=== PATIENT | male | born 1970 | race Hispanic/Latino ===

== ENCOUNTER 2019-01-27 18:38 | Emergency (ER) | payer MEDICAID ==
[2019-01-27 18:44] VITALS: O2SAT 96
[2019-01-27] MEDS ORDERED: Naproxen 550 mg Tab PO STA (19:11)
[2019-01-27] MEDS ORDERED: Naproxen 550 mg Tab PO ONE (20:24)
--- NOTE | 2019-01-27 20:40 | C.PDOC ---
History Of Present Illness 48-year-old male presents to the ED for evaluation of right-sided rib pain which began today. Patient states he accidentally tripped, fell and hurt his right ribcage against the curb of a sidewalk. Patient is complaining of pain to the area with movement of his right arm and with inspiration. Patient denies head injury, loss of consciousness, shortness of breath. Time Seen by Provider: 01/27/19 18:46 Chief Complaint (Nursing): Rib Injury History Per: Patient History/Exam Limitations: no limitations Onset/Duration Of Symptoms: Hrs Current Symptoms Are (Timing): Still Present Additional History Per: Patient Past Medical History Reviewed: Historical Data, Nursing Documentation, Vital Signs Vital Signs: Last Vital Signs Temp 98.3 F 01/27/19 18:40 Pulse 87 01/27/19 18:40 Resp 20 01/27/19 18:40 BP 151/74 H 01/27/19 18:40 Pulse Ox 96 01/27/19 18:40 Primary Care Provider: Non [facility] Provider, - Medical History PMH: HTN, Hypercholesterolemia Surgical History: No Surg Hx Family History: States: Unknown Family Hx - Social History Hx Alcohol Use: Yes Hx Substance Use: No - Immunization History Hx Tetanus Toxoid Vaccination: No Hx Influenza Vaccination: No Hx Pneumococcal Vaccination: No Review Of Systems Respiratory: Negative for: Shortness of Breath Musculoskeletal: Positive for: Other (right-sided rib pain ) Neurological: Negative for: Other (head injury, LOC ) Physical Exam - Physical Exam Appears: Non-toxic, No Acute Distress Skin: Normal Color, Warm, Dry Head: Atraumatic, Normacephalic Eye(s): bilateral: Normal Inspection Oral Mucosa: Moist Neck: Supple Chest: Symmetrical, No Deformity, Tenderness (to right intercostal region, around T4-T5 ), No Ecchymosis, No Other (crepitus, erythema ) Cardiovascular: Rhythm Regular, No Murmur Respiratory: Normal Breath Sounds, No Rales, No Rhonchi, No Wheezing Gastrointestinal/Abdominal: Soft, No Tenderness, No Guarding, No Rebound Back: No Vertebral Tenderness, No Paraspinal Tenderness Extremity: Normal ROM, Capillary Refill (less than 2 seconds ) Neurological/Psych: Oriented x3, Normal Speech, Normal Cognition ED Course And Treatment O2 Sat by Pulse Oximetry: 96 (on RA) Pulse Ox Interpretation: Normal - Other Rad Rt rib with chest X-Ray: Interpreted by Me, Viewed By Me Interpretation: No fx or dislocation. no pneumothorax Progress Note: Right ribs and chest XR ordered and reviewed. Naproxen PO given for pain. XR reviewed d/w pt who was informed that he will be notified of any XR discrepancies tomorrow. On reassessment, patient is resting comfortably, showing no signs of distress and is stable for discharge. Patient is advised to f/u with his PMD within 1-2 days for further evaluation. Reevaluation Time: 20:04 Reassessment Condition: Improved Disposition Counseled Patient/Family Regarding: Diagnosis, Need For Followup, Rx Given - Disposition Referrals: [facility] [Outside] Disposition: HOME/ ROUTINE Disposition Time: 20:38 Condition: STABLE Additional Instructions: Please follow up with PMD Take medications as directed Return to ER if worse Prescriptions: Cyclobenzaprine [Cyclobenzaprine HCl] 10 mg PO HS #10 tab Naproxen [Naprosyn] 1 tab PO BID PRN #25 tab PRN Reason: Pain Instructions: Bruised Rib (DC) Forms: Work/School/Gym Excuse, [facility] (Kazakh) - Clinical Impression Clinical Impression: Contusion of rib on right side - PA / ELEMENTARY PRINCIPAL / Resident Statement MD/DO has reviewed & agrees with the documentation as recorded. - Scribe Statement The provider has reviewed the documentation as recorded by the Scribe (Luci Dee) All medical record entries made by the Scribe were at my direction and personally dictated by me. I have reviewed the chart and agree that the record accurately reflects my personal performance of the history, physical exam, medical decision making, and the department course for this patient. I have also personally directed, reviewed, and agree with the discharge instructions and disposition.
[2019-01-27 20:42] VITALS: BP 136/78; PULSE 78; RESP 16; TEMP 98.9
--- NOTE | 2019-01-28 08:28 | RAD ---
Date of service: 01/27/2019 PROCEDURE: Radiographs of the Chest and Right Ribs. HISTORY: fall, pain mid ribcage/ axillary line COMPARISON: None available. TECHNIQUE: Frontal radiograph of the chest and multiple oblique radiographs of the right ribs were obtained. 4 views obtained. FINDINGS: RIGHT RIBS: . On the anterior right 6th rib there is bulbous contour and cortical irregularly compatible with a subacute and/or subacute to chronic fracture. There is also some bulbous contour to the anterior right 4th rib series 4, image 1 an equivocal subtly lateral 9th rib bulbous contour without dariana radiolucency is only noted on 1 image series 2, image 1 LUNGS: Clear. PLEURA: No pneumothorax or pleural fluid. CARDIOVASCULAR: Normal cardiac size. No pulmonary vascular congestion. No aortic atherosclerotic calcification present OTHER FINDINGS: Overall bronchovascular markings appear coarse-chronicity unknown. Prominent bilateral 1st coaster cartilaginous junctional calcifications present. IMPRESSION: Right anterior 6th rib morphology compatible with subacute and/or subacute to chronic nondisplaced right healed/healing rib fracture. Additional etiology likely affecting the right anterior 4th rib. Equivocal right lateral 9th rib morphology/similar pathology. No pneumothorax or pleural effusion. Comments: Study marked for PA review . Comments: No preliminary ER impression at this time.
== END 2019-01-27 20:49 | disposition home or self-care (01) ==
LOC: C.ER 18:38
DX: S20.211A Contusion of right front wall of thorax, initial encounter (principal); W01.0XXA Fall on same level from slipping, tripping and stumbling without subsequent striking against object, initial encounter; Y92.480 Sidewalk as the place of occurrence of the external cause